=== PATIENT | female | born 1965 | race Two or more races ===

== ENCOUNTER 2024-11-16 09:32 | Inpatient (IN) | payer OTHER, SELFPAY ==
[2024-10-28 14:19] VITALS: BMI 24.0
[2024-10-28 14:21] LABS: Hematocrit 37.5 % (37.0-47.0); Hemoglobin 12.4 g/dL (12.0-16.0); Mean Corp Hgb Conc. 33.1 g/dL (33.0-37.0); Mean Corpuscular Hgb 27.8 pg (27.0-31.0); Mean Corpuscular Volume 84.1 fL (81.0-99.0); Platelet Count 201 10^3/uL (130-400); Red Blood Cell Count 4.46 10^6/uL (4.20-5.40); Red Cell Dist. Width 11.9 % (11.5-14.5)
[2024-10-28 14:53] LABS: Glycohemoglobin (HgbA1c) 4.8 % (4.0-5.6)
[2024-10-28 15:26] LABS: ALT (SGPT) 16 U/L (0-35); AST (SGOT) 42 U/L (14-36); Albumin 4.4 g/dl (3.5-5.0); Alkaline Phosphatase 56 U/L (38-126); Blood Urea Nitrogen 8 mg/dl (7-17); Calcium 9.8 mg/dl (8.4-10.2); Carbon Dioxide 29 mmol/L (22-30); Chloride 96 mmol/L (98-107); Estimated Creatinine Clearance 91 ml/min; Glucose 90 mg/dl (70-99); Potassium 4.1 mmol/L (3.5-5.1); Sodium 132 mmol/L (135-145); Total Bilirubin 0.5 mg/dl (0.2-1.3); Total Protein 6.6 g/dl (6.3-8.2); eGFR > 60.00
[2024-11-10 11:57] VITALS: BMI 24.0
[2024-11-16] VITALS (15 sets, daily range): BP systolic 87–123; BP diastolic 56–85; PULSE 87; O2SAT 97; BMI 24.0
[2024-11-16] MEDS: TYLENOL 650 MG PO ×3 (10:07→21:41)
[2024-11-16] MEDS: MOBIC 15 MG PO (10:07)
[2024-11-16] MEDS: NORMOSOL-R/PLASMALYTE-A 1000 IV ×2 (10:22→14:32)
--- NOTE | 2024-11-16 10:24 | PTCARENOTE ---
Patient appears very anxious. Patient very talkative. Will monitor patient.
--- NOTE | 2024-11-16 11:39 | W.DS.TRANS ---
DC Summary - Property Maintenance Technician
-
Discharge Instructions:
Sleep Apnea Risk Low
Discharge Diagnosis/Procedures R TKA 11/16/24
Diet As tolerated
Activity With Walker
Driving Restrictions No driving
Bathing Restrictions OK to Shower
Other Services PT
Instructions:
Stand-Alone Forms: Total Hip/Knee Replacement D/C
Changes to Home Medications: Yes
Discharge Medications:
DC Medications w/original date entered in [facility]
alprazolam 1 mg tablet (Xanax) 1 mg PO HS anxiety, sleep 10/26/24
azelastine 137 mcg (0.1 %) nasal spray 1 spray intranasal HS PRN Congestion 10/26/24
estradiol 0.01% (0.1 mg/gram) vaginal cream 1 appful vaginal SUWE 10/26/24
guaifenesin 600 mg tablet, extended release 12 hr (Mucinex) 600 mg PO Q12H PRN congestion 10/26/24
zolpidem 10 mg tablet (Ambien) 10 mg PO HS PRN sleep 10/26/24
mupirocin 2 % topical ointment 1 applic intranasal BID #1 tube 10/28/24
rizatriptan 10 mg disintegrating tablet 10 mg PO ONCE PRN migraines 10/28/24
acetaminophen 325 mg tablet (Tylenol) 650 mg (2 x 325 mg) PO QID #1 tab 11/16/24
aspirin 325 mg tablet 325 mg PO DAILY blood clot prevention #1 tab 11/16/24
dexamethasone 4 mg tablet 4 mg PO BID inflammation #6 tabs 11/16/24
docusate sodium 100 mg capsule (Colace) 100 mg PO BID stool softner #1 cap 11/16/24
gabapentin 300 mg capsule 300 mg PO HS sleep/pain #10 caps 11/16/24
magnesium hydroxide 400 mg/5 mL oral suspension (Milk of Magnesia) 30 ml PO HS PRN Constipation #1 mL 11/16/24
meloxicam 15 mg tablet 15 mg PO DAILY anti-inflammatory #14 tabs 11/16/24
ondansetron 4 mg disintegrating tablet 4 mg PO Q6H PRN n/v #20 tabs 11/16/24
sennosides 8.6 mg tablet (Senokot) 17.2 mg (2 x 8.6 mg) PO BID laxative #2 tabs 11/16/24
tramadol 50 mg tablet 50 mg PO Q6H PRN 1 tab moderate pain, 2 if severe #30 tabs 11/16/24
Home Medication Changes
acetaminophen 325 mg tablet (Tylenol) 650 mg (2 x 325 mg) PO QID #1 tab 11/16/24
aspirin 325 mg tablet 325 mg PO DAILY blood clot prevention #1 tab 11/16/24
dexamethasone 4 mg tablet 4 mg PO BID inflammation #6 tabs 11/16/24
docusate sodium 100 mg capsule (Colace) 100 mg PO BID stool softner #1 cap 11/16/24
gabapentin 300 mg capsule 300 mg PO HS sleep/pain #10 caps 11/16/24
magnesium hydroxide 400 mg/5 mL oral suspension (Milk of Magnesia) 30 ml PO HS PRN Constipation #1 mL 11/16/24
meloxicam 15 mg tablet 15 mg PO DAILY anti-inflammatory #14 tabs 11/16/24
ondansetron 4 mg disintegrating tablet 4 mg PO Q6H PRN n/v #20 tabs 11/16/24
sennosides 8.6 mg tablet (Senokot) 17.2 mg (2 x 8.6 mg) PO BID laxative #2 tabs 11/16/24
tramadol 50 mg tablet 50 mg PO Q6H PRN 1 tab moderate pain, 2 if severe #30 tabs 11/16/24
Pending Results: No
--- NOTE | 2024-11-16 11:39 | W.PN.UPDATE ---
Update Note
Progress Note Update
R TKA 11/16/24
DVT ppx ASA
Hx p/o syncope/orthostasis--+ Midodrine w/ parameter, IVF, minimize opioids--monitor
[2024-11-16] MEDS: TYLENOL PO ×2 (14:17→23:10)
[2024-11-16] MEDS: ULTRAM 50 MG PO ×2 (14:36→23:33)
[2024-11-16] MEDS: ProAmatine 5 MG PO (16:12)
--- NOTE | 2024-11-16 16:24 | PTCARENOTE ---
Patient admitted from PACU for right total knee arthroplasty.The patient is alert and oriented. She rates her pain at a 2 out of 10.Neurovascular assessment is within normal limits and ongoing.The Mepilex dressing is intact without drainage.The
patient is in her bed with the call goldberg in reach.
[2024-11-16] MEDS: ASPIRIN 325 MG PO (17:19)
[2024-11-16] MEDS: BACTROBAN 2% OINTMENT 1 APPLIC NASAL (21:39)
[2024-11-16] MEDS: COLACE 100 MG PO (21:41)
[2024-11-16] MEDS: PEPCID 20 MG PO (21:45)
[2024-11-16] MEDS: ANCEF 5 IV (21:46)
[2024-11-16] MEDS: DECADRON 4 MG IV (21:48)
[2024-11-16] MEDS: TORADOL 15 MG IV (21:48)
[2024-11-16] MEDS: XANAX 1 MG PO (21:49)
[2024-11-16] MEDS: AMBIEN 10 MG PO (23:40)
[2024-11-17] VITALS (7 sets, daily range): BP systolic 117–142; BP diastolic 70–81; PULSE 78–107; O2SAT 100
[2024-11-17] MEDS: ULTRAM 100 MG PO (02:22)
[2024-11-17] MEDS: FLUSH (NSS) 2 FLUSH IV (04:50)
[2024-11-17] MEDS: ANCEF 5 IV (04:51)
[2024-11-17] MEDS: TYLENOL 650 MG PO ×3 (04:51→12:40)
--- NOTE | 2024-11-17 08:10 | W.PN.ORTHO ---
Today's Communication / Plan
-
d/c
Assessment
.
Distal Motor Intact: Yes
Dressing:
Clean, dry and intact.
Assessment:
Hx p/o syncope/orthostasis--+ Midodrine w/ parameter, IVF, minimize opioids---vasovagal symptoms 11/16 shortly after surgery-IVF bolus today and Midodrine prior to therapy-monitor
Plan
.
Surgery / Date: R TKA 11/16/24
DVT Prophylaxis: Aspirin
Activity:
Out of bed.
PT/OT
Discharge Plan: Home w/ Outpatient PT
Subjective
.
.:
Patient resting comfortably.
Vital Signs and Labs
.
Vital Signs and Labs:
Lab Results
10/28/24 12:41
10/28/24 12:41
Temp Pulse Resp BP Pulse Ox
98.5 F 85 18 142/70 99
11/17/24 07:38 11/17/24 07:38 11/17/24 07:38 11/17/24 07:38 11/17/24 07:38
Non-invasive Hgb result: 10.5
Physical Exam
-
HEENT: No pallor, cyanosis, or jaundice. Throat clear.
NECK: Supple. No JVD.
RESPIRATORY: Lungs clear to auscultation.
CVS: S1, S2 normal. RRR.� No murmur, rub or gallop.
ABDOMEN: Soft, non-tender. No distension. BS+/normal.
EXTREMITIES: strength equal, no calf pain with palpation
OIL LEASE BROKER: AOx3. No focal deficits. triage nurse grossly intact
--- NOTE | 2024-11-17 08:28 | CM ---
CM met with patient in room. Patient confirmed demographics. Patient lives independently. Patient has a history of VN through [facility] but is currently not on service. Patient does not have a history of inpatient rehab. Patient has a walker,
cane and other adaptive equipment. Patient stated that she plans to pay a co worker who is a physical therapist to come out to the house. 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
Patient is active with her PCP.
Patient uses [facility] for medication services.
PLAN: Home with private pay Physical Therapist.
[2024-11-17] MEDS: COLACE 100 MG PO (09:19)
[2024-11-17] MEDS: ASPIRIN 325 MG PO (09:19)
[2024-11-17] MEDS: DECADRON 4 MG IV (09:19)
[2024-11-17] MEDS: BACTROBAN 2% OINTMENT 1 APPLIC NASAL (09:19)
[2024-11-17] MEDS: TORADOL 15 MG IV (09:21)
[2024-11-17] MEDS: MOBIC 15 MG PO (09:21)
[2024-11-17] MEDS: FLUSH (NSS) 1 FLUSH IV (09:22)
[2024-11-17] MEDS: ProAmatine 5 MG PO ×2 (09:23→12:41)
[2024-11-17] MEDS: NORMOSOL-R/PLASMALYTE-A 500 IV (09:31)
== END 2024-11-17 16:13 | disposition home or self-care (01) | DRG 470 ==
LOC: 2 SOUTH 09:32
PROVIDERS: ADMITTING PHYSICIAN Specialist; FAMILY PHYSICIAN Family Medicine
PROC: 0SRC0J9 Replacement of Right Knee Joint with Synthetic Substitute, Cemented, Open Approach (ICD-10-PCS; 2024-11-16)
DX: M17.11 Unilateral primary osteoarthritis, right knee (principal); M21.00 Valgus deformity, not elsewhere classified, unspecified site; Z85.828 Personal history of other malignant neoplasm of skin
CPT/HCPCS: 36415; 73560; 80053; 83036; 85027; 87070; 93005; 97116; 97162; 97166; 97530; 97535; C1713; C1762; C1776